=== PATIENT | female | born 1990 | race Caucasian/White ===

== ENCOUNTER 2018-12-20 00:25 | Emergency (ER) | payer SELFPAY ==
[~2018-12-20] VITALS: Ht 152.4 cm; Wt 55.8 kg
[2018-12-20 00:33] VITALS: Ht 152.4 cm; Wt 55.8 kg
[2018-12-20 02:01] VITALS: BP 125/98
== END 2018-12-20 02:02 | disposition home or self-care (01) ==
LOC: ED 00:25
DX: J20.9 Acute bronchitis, unspecified (principal); R03.0 Elevated blood-pressure reading, without diagnosis of hypertension
CPT/HCPCS: J7512; J7613; J7644